=== PATIENT | male | born 1955 | race African-American/Black ===

== ENCOUNTER → 2020-10-06 | Outpatient (CLI) | payer OTHER, BC | LOC: LAB 11:20 | PROVIDERS: ATTEND Internal Medicine Gastroenterology | DX: Z01.812 Encounter for preprocedural laboratory examination (principal); Z20.828 Contact with and (suspected) exposure to other viral communicable diseases ==

== ENCOUNTER → 2020-10-11 | Outpatient (CLI) | payer OTHER, BC ==
[~2020-10-11] VITALS: Ht 180.3 cm; Wt 113.4 kg
[~2020-10-11] MED LIST: ASPIRIN EC325 M1 PO; AZASAN75 MG PO; DAILY MULTIPLE1 EACH PO; DILTIAZEM ER240 MG PO; HUMALOG100 UNIT/1 SUBQ; LOSARTAN-HCTZ1 EAC3 PO; PROVENTIL HFA6.7 G1 INH; TRESIBA FL100 UNIT/1 SUBQ; VITAMIN D350 MC3 PO; WELCHOL 625 MG625 M1 PO
--- NOTE | 2020-10-14 10:06 | PATH ---
[facility] [address] [place] [address] PATHOLOGY RPT PROCEDURE Name: DEVIN COSTELLO Room #: REG CLHome Neelam.#: [id number] Admission: 10/11/20 Date of : 51 Discharge: Report #: [id number] Path Case #: [id number] [facility] Accession Number: [id number] . 01 Material submitted: . stomach - BIOPSY ANTRUM R/O H. PYLORI . 01 Clinical history: . R/O VARICIES . 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 - An H. pylori immunostain is negative (A1; appropriate control). (MAP:[facility] 10/14/2020) [facility] 10/14/2020 0828 Local . 02 Electronically signed: . Ap Quevedo MD, Pathologist NPI- [id number] . 01 Gross description: . The specimen is received in formalin, labeled "Alfonzo Devin", "biopsy of antrum rule out H. pylori". Received are 3 segments of pale luu soft tissue measuring 0.1, 0.2 and 0.2 cm. The specimen is entirely submitted in cassette A1.(SNA; 10/12/2020) DAISY/CLAUDIA 10/12/2020 1627 Local . 02 Pathologist provided ICD-10: K29.50 . 02 CPT . 845737, [id number] Specimen Comment: A courtesy copy of this report has been sent to [phone], [phone] Specimen Comment: [id number] Specimen Comment: Report sent to / DR IBARRA Performed at: [address], [place], [place] [id number] MD Lionel Diaz MD Phone: [phone] Performed at: [address] [id number] MD Martina De La Torre MD Phone: [phone]
== END ==
LOC: GI 07:56
PROVIDERS: ATTEND Internal Medicine Gastroenterology
DX: K76.6 Portal hypertension (principal); K29.50 Unspecified chronic gastritis without bleeding; K31.89 Other diseases of stomach and duodenum; I10 Essential (primary) hypertension; E11.9 Type 2 diabetes mellitus without complications; J45.909 Unspecified asthma, uncomplicated; K21.9 Gastro-esophageal reflux disease without esophagitis; K74.60 Unspecified cirrhosis of liver; Z98.890 Other specified postprocedural states; Z79.899 Other long term (current) drug therapy; Z79.4 Long term (current) use of insulin
CPT/HCPCS: 62110; 62900